=== PATIENT | male | born 1990 ===

== ENCOUNTER 2022-06-05 11:21 | Emergency (ER) | payer SELFPAY ==
[2022-06-05 11:34] VITALS: BP 126/80; BP 141/85; PULSE 107; PULSE 96; RESP 18; TEMP 36.7; O2SAT 96; O2SAT 97; BMI 26.3
[2022-06-05 11:38] VITALS: BP 126/80; PULSE 107; O2SAT 95; BMI 25.0
[2022-06-05 13:46] VITALS: BP 153/89; PULSE 86; RESP 20; O2SAT 99
--- NOTE | 2022-06-05 14:06 | ED_ITS ---
HPI - Alcohol General Chief Complaint: ETOH/Substance Use Stated Complaint: ETOH INTOXICATION PER EMS Time Seen by Provider: 06/05/22 13:55 Source: patient Mode of arrival: EMS Limitations: no limitations History of Present Illness HPI narrative: 31-year-old male who presents emergency department for evaluation of alcohol intoxication. Patient states that he was drinking with friends who were concerned that he was too drunk and these friends then called an ambulance. The patient states that he did not want to come to the emergency department but was forced. At this time he does not want any treatment or blood work. He states that he has a history of alcohol use disorder and drinks daily. He told me that he was drinking fireball whiskey. He states that he has been in a detox facility in May 2021 and he has tried different ways to quit drinking but he has been unsuccessful. He is not interested in talking to our [facility] getting into a detox program at this time. He denies any fall or injuries. He denies being ill in any way prior to coming to the emergency department. Related Data Allergies Allergy/AdvReac Type Severity Reaction Status Date / Time From [facility] Allergy Unknown TACHYCARDIA Uncoded 02/02/20 16:00 Review of Systems Review of Systems: Yes all other systems are reviewed and are negative [facility] Past Medical History [facility] Narrative: Past medical history: Alcohol use disorder. Social history: The patient denies tobacco use. He does drink alcohol daily. He denies drug use. Social History Social History Advance Directives: No Advance Directives Information Provided: No Physical Exam ED Vital Signs: Vital Signs - 24 hr 06/05/22 11:34 06/05/22 13:46 Temperature 98.1 F Pulse Rate 96 86 Respiratory Rate 18 20 Blood Pressure 141/85 H 153/89 H Pulse Oximetry 97 99 Oxygen Delivery Method Room Air Room Air BMI result Body Mass Index 25.0 Const Other: Awake, alert, male patient, has a strong odor of alcohol on his breath, he answers all questions appropriately HENIN Head: Yes normal to inspection, Yes normocephalic and Yes atraumatic Ears: external ears normal General nose exam: Normal external nose present Face and sinus: Yes normal facial exam Mouth: Normal oral and palatal mucosa present Throat: Yes posterior oropharynx normal Eyes General: appearance normal, both eyes and all related structures Pupils: Equal, round and reactive pupils present Neck Neck: Yes normal visual inspection, Yes no lymphadenopathy, Yes trachea midline and Yes supple Chest Chest palpation & inspection: normal inspection of the chest and normal palpation of entire chest wall Resp Effort & Inspection: normal respiratory effort and able to speak in complete sentences Auscultation: clear to auscultation bilaterally Cardio Rate: regular rate Rhythm: regular rhythm Heart sounds: S1 normal heart sound present, S2 normal heart sound present and no murmurs GI Inspection: Yes normal to inspection Palpation (GI): Soft to palpation, nontender and no guarding Auscultation: normal bowel sounds General: Yes no CVA tenderness Back/Spine/Pelvis Back: no CVA tenderness Skin General skin exam: no rashes or lesions noted Neuro Cranial nerves: Yes CN's II-XII intact bilaterally and Yes Equal, round and reactive pupils present Cognition (Neuro): normal cognition Motor exam (neuro): 5/5 motor strength present throughout Coordination: [id number] test normal and tandem gait normal Extrem General: Yes normal to inspection Psych Appearance: grossly normal Speech and movement: Normal speech and movement present Affect: normal affect Attitude: cooperative Thought process: Normal thought process present Thought content: Normal thought content present Medical Decision Making Medical Decision Making MDM Narrative: 31-year-old male with history of alcohol use disorder who was drinking fireball whiskey today and was brought to the emergency department for evaluation of acute alcohol intoxication. Patient states that he was drinking alcohol he does not want care here in the emergency department. He denies any injury. He does not want any assistance with his alcohol use disorder. Patient was able answer all questions appropriately, he does have a strong odor of alcohol on his breath. The patient was able to walk in the emergency depart without any difficulty. His neurologic exam was nonfocal and he has no evidence of significant trauma. He is not suicidal or homicidal therefore I do not have any way to keep him in the emergency department until he is sober and he will be discharged home. Discharge Plan Discharge Clinical Impression: Alcoholic intoxication Qualifiers: Complication of substance-induced condition: uncomplicated Qualified Code(s): F10.920 - Alcohol use, unspecified with intoxication, uncomplicated Patient Disposition: Home, Self-Care Instructions: Alcohol Use Disorder (ED) Additional Instructions: You are intoxicated/drunk. You are able to answer all questions appropriately. You are able to walk here in the emergency department without any difficulty. I recommended that you stay in the emergency department so that we can observe you until you are sober however you do not want to stay and you want to go home at this time. The risk of leaving while you are intoxicated is that you could fall down and injure yourself or make bad decisions because you are intoxicated that can lead to injury. You understood this risk and you still want to go home. Do not drink any more alcohol today. Do not drive or handle any equipment, machinery or other things that can cause injury Consider getting into an alcohol rehab program. Follow-up with your doctor in 2 days. Please return to the emergency department if your symptoms get worse or if you develop any symptoms that are concerning to you. Interventions: [place]-Suicide Risk Severity Scale Last Done: 06/05/22 12:32
== END 2022-06-05 14:26 | disposition home or self-care (01) ==
PROVIDERS: Emergency Provider Emergency Medicine Emergency Medical Services
DX: F10.129 Alcohol abuse with intoxication, unspecified (principal); Y90.9 Presence of alcohol in blood, level not specified
CPT/HCPCS: 99282; 99284

== ENCOUNTER 2022-09-29 20:57 | Emergency (ER) | payer MEDICAID, SELFPAY ==
[2022-09-29 21:20] VITALS: BP 115/72; BP 123/79; PULSE 69; PULSE 72; RESP 19; TEMP 36.3; O2SAT 97; O2SAT 98; BMI 22.1
[2022-09-29 21:23] VITALS: BP 115/72; PULSE 71; RESP 14; O2SAT 98
[2022-09-29 21:33] LABS: MANUAL DIFF FLAG NO
[2022-09-29 21:35] LABS: Basophils Percent Auto 0.6 % (0-2); Eosinophils Absolute Auto 0.3 X10*3/uL (0.0-0.4); Eosinophils Percent Auto 5.3 % (0-4); Hematocrit 41.5 % (42.0-52.0); Hemoglobin 14.8 g/dl (14.0-18.0); Imm Gran Abs Auto 0.02 X10*3/uL (0.00-0.03); Imm Gran Pct Auto 0.3 % (0.0-0.4); Lymphocytes Absolute Auto 2.4 X10*3/uL (1.2-4.9); Lymphocytes Percent Auto 38.7 % (20-40); Mean Corpuscular HGB Conc 35.7 g/dl (31.0-36.0); Mean Corpuscular Hemoglobin 30.3 pg (27.0-33.0); Mean Corpuscular Volume 84.9 fL (80.0-98.0); Mean Platelet Volume 9.7 fL (9.4-12.4); Monocytes Absolute Auto 0.6 X10*3/uL (0.1-1.2); Monocytes Percent Auto 8.8 % (2-11); Neutrophils Absolute Auto 2.9 x10*3/uL (2.0-8.3); Neutrophils Percent Auto 46.3 % (45-73); Platelet Count 235 X10*3/uL (160-400); Red Blood Count 4.89 X10*6/uL (4.60-5.80); Red Cell Distribution Width 12.5 % (11.0-16.0); White Blood Count 6.2 X10*3/uL (4.8-10.8)
[2022-09-29 21:50] LABS: Anion Gap 13 (12-20); Blood Urea Nitrogen 9 mg/dL (9-16); Calcium 9.3 mg/dL (8.4-10.2); Carbon Dioxide 25 mmol/L (22-29); Chloride 112 mmol/L (96-108); Creatinine Clr Calc Pharmacy 119.7; Estimated Glomerular Filt Rate > 60; Ethanol 414 mg/dL; Glucose Random 116 mg/dL (60-115); Potassium 3.2 mmol/L (3.3-5.1); Sodium 147 mmol/L (135-145)
--- NOTE | 2022-09-29 22:09 | PC.NURSE ---
pt found on side of road sleeping, pt smells like alcohol and occasionally is drooling. Pt propped up, IV secured. VSS at this time. Labs obtained
[2022-09-29 22:17] VITALS: BP 112/61; PULSE 65; RESP 15; O2SAT 94
[2022-09-29 23:15] LABS: Appearance Urine Clear; Color Urine Yellow; Glucose Urine UA Negative (Negative); Leukocyte Esterase Urine Negative (Negative); Nitrite Urine Negative (Negative); Specific Gravity - Urine <= 1.005 (1.005-1.025); Urine Blood Negative (Negative); Urine Ketones Negative (Negative); Urine Protein Negative (Neg-Trace)
[2022-09-29 23:24] LABS: Amphetamine Screen Urine Not Detected (Not Detect); Barbiturates, Urine Not Detected (Not Detect); Benzodiazepines Screen Urine Not Detected (Not Detect); Cannabinoid Screen Urine POSITIVE (Not Detect); Cocaine Screen Urine Not Detected (Not Detect); Fentanyl, urine Not Detected (Not Detect); Opiate Screen Urine Not Detected (Not Detect); Phencyclidine Screen Urine Not Detected (Not Detect)
[2022-09-29 23:44] VITALS: BP 129/76; PULSE 77; RESP 16; TEMP 36.3; O2SAT 96
--- NOTE | 2022-09-29 23:46 | MHC.EDTECH ---
THIS PCT ASSUMED CARE OF PATIENT AT 2300 ,VITALS SIGN TAKEN PATIENT SLEEPING ,PATIENT BELONGING IS IN ROOM ,LIVIA STEVEN ''SAID '' NOT TO LOCK PATIENT BELONGING UP .
--- NOTE | 2022-09-30 01:35 | ED_ITS ---
HPI - Alcohol General Chief Complaint: ETOH/Substance Use Stated Complaint: etoh Time Seen by Provider: 09/29/22 21:40 Source: EMS Mode of arrival: EMS Limitations: other (Intoxicated) History of Present Illness HPI narrative: Patient comes to the emergency room via ambulance. Bystanders found the patient sleeping on the ground. Seems that patient was intoxicated, neatly parked his bike and patient decided to take a nap. Report was that patient did not fall, patient was found sleeping. When patient came in, patient was intoxicated, denies falling or headache. Related Data Allergies Allergy/AdvReac Type Severity Reaction Status Date / Time From [facility] Allergy Unknown TACHYCARDIA Uncoded 02/02/20 16:00 Review of Systems Review of Systems: Yes Unobtainable due to mental condition [facility] Social History Social History Alcohol intake: current Smoked in Last 30 Days: Yes Use of substances other than those prescribed or required for medical reasons: Refusing to respond Physical Exam ED Vital Signs: Vital Signs - 24 hr 09/29/22 21:20 09/29/22 21:23 09/29/22 22:17 Temperature 97.3 F Pulse Rate 69 71 65 Respiratory Rate 19 14 15 Blood Pressure 123/79 115/72 112/61 Pulse Oximetry 98 98 94 Oxygen Delivery Method Room Air Room Air Room Air 09/29/22 23:44 Temperature 97.4 F Pulse Rate 77 Respiratory Rate 16 Blood Pressure 129/76 Pulse Oximetry 96 Oxygen Delivery Method Room Air BMI result Body Mass Index 22.1 Const Other: Appearance: Alert. Intoxicated, easily arousable but falls asleep again Eyes: Pupils equal, round and reactive to light. ENT: Pharynx normal. Neck: Normal inspection. Neck supple. No lymph nodes noted. No crepitus CVS: Normal heart rate and rhythm. Pulses normal. Normal S1 and S2 Respiratory: No respiratory distress. Breath sounds normal. No Wheezing. No rales Abdomen: Soft and nontender. No rigidity. No distention. Skin: Skin warm and dry. Normal skin color. Normal skin turgor. Extremities: No lower extremity edema. No Lacerations. No Rash Neuro: Patient intoxicated, unable to participate in cranial nerve assessment Psych: calm, cooperative, intoxicated Medical Decision Making Medical Decision Making MDM Narrative: -there are no signs of trauma, does not seem that patient fell or hit his head. -patient's blood alcohol level 414. Plan: Metabolize to [facility], of her detox when patient is sober. -physician observation started at 01:00 -sign-out given to Dr. Farrar Lab Data 09/29/22 21:30 09/29/22 21:30 Labs: Lab Results 09/29/22 09/29/22 09/29/22 Range/Units 21:30 21:30 23:06 WBC 6.2 (4.8-10.8) X10*3/uL RBC 4.89 (4.60-5.80) X10*6/uL Hgb 14.8 (14.0-18.0) g/dl Hct 41.5 L (42.0-52.0) % MCV 84.9 (80.0-98.0) fL MCH 30.3 (27.0-33.0) pg MCHC 35.7 (31.0-36.0) g/dl RDW 12.5 (11.0-16.0) % Plt Count 235 (160-400) X10*3/uL MPV 9.7 (9.4-12.4) fL Immature Gran % (Auto) 0.3 (0.0-0.4) % Neut % (Auto) 46.3 (45-73) % Lymph % (Auto) 38.7 (20-40) % [place] % (Auto) 8.8 (2-11) % Eos % (Auto) 5.3 H (0-4) % Baso % (Auto) 0.6 (0-2) % Lymph # (Auto) 2.4 (1.2-4.9) X10*3/uL [place] # (Auto) 0.6 (0.1-1.2) X10*3/uL Eos # (Auto) 0.3 (0.0-0.4) X10*3/uL Baso # (Auto) 0.0 (0.0-0.2) X10*3/uL Abs Immat Gran (auto) 0.02 (0.00-0.03) X10*3/uL Absolute Neuts (auto) 2.9 (2.0-8.3) x10*3/uL Absolute Nucleated RBC 0.000 (0.0-0.012) X10*3/uL Nucleated RBC % (auto) 0.0 (0.0-0.2) /100WBC Sodium 147 H (135-145) mmol/L Potassium 3.2 L (3.3-5.1) mmol/L Chloride 112 H (96-108) mmol/L Carbon Dioxide 25 (22-29) mmol/L Anion Gap 13 (12-20) BUN 9 (9-16) mg/dL Creatinine 0.86 (0.5-1.4) mg/dL Estim Creat Clear Calc 119.7 Estimated GFR > 60 Random Glucose 116 H (60-115) mg/dL Calcium 9.3 (8.4-10.2) mg/dL Urine Color Urine Appearance Urine pH (5.0-9.0) Ur Specific [place] (1.005-1.025) Urine Protein (Neg-Trace) mg/dL Urine Glucose (UA) (Negative) mg/dL Urine Ketones (Negative) mg/dL Urine Blood (Negative) Urine Nitrite (Negative) Ur Leukocyte Esterase (Negative) Urine Opiates Screen Not Detected (Not Detect) Urine Fentanyl Screen Not Detected (Not Detect) Ur Barbiturates Screen Not Detected (Not Detect) Ur Phencyclidine Scrn Not Detected (Not Detect) Ur Amphetamines Screen Not Detected (Not Detect) U Benzodiazepines Scrn Not Detected (Not Detect) Urine Cocaine Screen Not Detected (Not Detect) U Marijuana (THC) Screen POSITIVE H (Not Detect) Ethyl Alcohol 414 H* mg/dL 09/29/22 Range/Units 23:06 WBC (4.8-10.8) X10*3/uL RBC (4.60-5.80) X10*6/uL Hgb (14.0-18.0) g/dl Hct (42.0-52.0) % MCV (80.0-98.0) fL MCH (27.0-33.0) pg MCHC (31.0-36.0) g/dl RDW (11.0-16.0) % Plt Count (160-400) X10*3/uL MPV (9.4-12.4) fL Immature Gran % (Auto) (0.0-0.4) % Neut % (Auto) (45-73) % Lymph % (Auto) (20-40) % [place] % (Auto) (2-11) % Eos % (Auto) (0-4) % Baso % (Auto) (0-2) % Lymph # (Auto) (1.2-4.9) X10*3/uL [place] # (Auto) (0.1-1.2) X10*3/uL Eos # (Auto) (0.0-0.4) X10*3/uL Baso # (Auto) (0.0-0.2) X10*3/uL Abs Immat Gran (auto) (0.00-0.03) X10*3/uL Absolute Neuts (auto) (2.0-8.3) x10*3/uL Absolute Nucleated RBC (0.0-0.012) X10*3/uL Nucleated RBC % (auto) (0.0-0.2) /100WBC Sodium (135-145) mmol/L Potassium (3.3-5.1) mmol/L Chloride (96-108) mmol/L Carbon Dioxide (22-29) mmol/L Anion Gap (12-20) BUN (9-16) mg/dL Creatinine (0.5-1.4) mg/dL Estim Creat Clear Calc Estimated GFR Random Glucose (60-115) mg/dL Calcium (8.4-10.2) mg/dL Urine Color Yellow Urine Appearance Clear Urine pH 6.0 (5.0-9.0) Ur Specific [place] <= 1.005 (1.005-1.025) Urine Protein Negative (Neg-Trace) mg/dL Urine Glucose (UA) Negative (Negative) mg/dL Urine Ketones Negative (Negative) mg/dL Urine Blood Negative (Negative) Urine Nitrite Negative (Negative) Ur Leukocyte Esterase Negative (Negative) Urine Opiates Screen (Not Detect) Urine Fentanyl Screen (Not Detect) Ur Barbiturates Screen (Not Detect) Ur Phencyclidine Scrn (Not Detect) Ur Amphetamines Screen (Not Detect) U Benzodiazepines Scrn (Not Detect) Urine Cocaine Screen (Not Detect) U Marijuana (THC) Screen (Not Detect) Ethyl Alcohol mg/dL Discharge Plan Discharge Clinical Impression: Alcoholic intoxication Patient Disposition: Still a Patient
[2022-09-30 01:54] VITALS: BP 107/67; PULSE 100; RESP 20; TEMP 36.7; O2SAT 97
--- NOTE | 2022-09-30 03:04 | PC.NURSE ---
pt beginning to wake up, spoke with this RN stating that he drinks daily and has no complaints at this time. pt back to sleep at this time, respirations even and unlabored, skin pwd, no apparent distress
[2022-09-30 04:43] VITALS: BP 108/67; PULSE 65; RESP 16; TEMP 36.5; O2SAT 97
[2022-09-30 06:00] VITALS: BP 97/56; PULSE 64; RESP 16; TEMP 36.5; O2SAT 97
--- NOTE | 2022-09-30 06:33 | MHC.EDTECH ---
PATIENT WAS INCONTINENT OF URINE ,CARE GIVEN ,BEDDING CHANGE ,WARM BLANKET GIVEN .
[2022-09-30 07:07] VITALS: BP 149/91; PULSE 88; RESP 18; O2SAT 100
== END 2022-09-30 07:38 | disposition home or self-care (01) ==
PROVIDERS: Emergency Provider Emergency Medicine
DX: F10.220 Alcohol dependence with intoxication, uncomplicated (principal); Y90.8 Blood alcohol level of 240 mg/100 ml or more
CPT/HCPCS: 36415; 80048; 80307; 81003; 85025; 99284; 99285